=== PATIENT | male | born 1990 | race Two or more races ===

== ENCOUNTER 2017-11-17 20:36 | Emergency (ER) | payer SELFPAY ==
--- NOTE | 2017-11-17 21:33 | NUR ---
CALLED FOR TRIAGE; NO ANSWER
== END 2017-11-17 22:11 | disposition left against medical advice (07) ==
LOC: ER 20:42
DX: S89.90XA Unspecified injury of unspecified lower leg, initial encounter (principal); X58.XXXA Exposure to other specified factors, initial encounter; Y93.89 Activity, other specified; Y92.89 Other specified places as the place of occurrence of the external cause; Y99.8 Other external cause status; Z53.21 Procedure and treatment not carried out due to patient leaving prior to being seen by health care provider

== ENCOUNTER 2020-11-02 20:10 | Emergency (ER) | payer SELFPAY ==
[~2020-11-02] VITALS: Ht 162.6 cm; Wt 54.4 kg
--- NOTE | 2020-11-02 20:48 | NUR ---
PATIENT CAME TO ER BED 06 C/O GENERALIZED ABDOMINAL PAIN SINCE TODAY IN THE NOON. PATIENT STATES THAT HE HAD LAST EATEN A TORTA IN THE MORNING WITH BM WITH NO ISSUES. PATIENT THEN FELT CRAMPING SENSATION ALL OVER HIS STOMACH. PATIENT IS ALERT AND ORIENTED x4. DENIES SHORTNESS OF BREATH. CONNECTED TO THE MONITOR.
--- NOTE | 2020-11-02 20:54 | NUR ---
BLOOD SENT TO LAB
[2020-11-02] MEDS ORDERED: IV NS 0.9% 1,000 ML BAG IV ONE (21:00)
[2020-11-02] MEDS ORDERED: DICYCLOMINE HCL 10 MG CAPSULE PO ONE ×2 (21:00→21:02)
[2020-11-02] MEDS ORDERED: TRAMADOL HCL 50 MG TABLET PO ONE (21:00)
[2020-11-02] MEDS ORDERED: TRAMADOL HCL 50 MG TABLET ONE (21:02)
[2020-11-02 21:14] LABS: BASOPHILS % (AUTO) 0.4 % (0.0-2.0); EOSINOPHILS % (AUTO) 0.4 % (0.0-6.0); HEMATOCRIT 46 % (39-51); HEMOGLOBIN 15.6 g/dL (13.5-17.5); LYMPHOCYTES # (AUTO) 2.3 K/uL (0.8-4.8); LYMPHOCYTES % (AUTO) 27.3 % (20.0-44.0); MEAN CORPUSCULAR HGB CONC 34 g/dl (31.0-36.0); MEAN CORPUSCULAR VOLUME 99 fL (80-96); MONOCYTES # (AUTO) 0.5 K/uL (0.1-1.30); MONOCYTES % (AUTO) 6.5 % (2.0-12.0); NEUTROPHILS # (AUTO) 5.5 K/uL (1.8-8.9); NEUTROPHILS % (AUTO) 65.4 % (43.0-81.0); PLATELET COUNT (AUTO) 194 K/uL (150-450); RED BLOOD CELL COUNT(AUTO) 4.65 MIL/uL (4.5-6.0); WHITE BLOOD COUNT (AUTO) 8.4 K/uL (4.3-11.0)
[2020-11-02 21:20] LABS: CALCIUM, SERUM 9.2 mg/dL (8.5-10.1); CREATININE 0.8 mg/dL (0.6-1.3); POTASSIUM 3.9 mmol/L (3.5-5.1)
[2020-11-02 21:20] LABS: BILIRUBIN,URINE NEGATIVE (NEGATIVE); COLOR,URINE YELLOW (YELLOW); LEUKOCYTE ESTERASE ,URINE NEGATIVE (NEGATIVE); NITRITE, URINE NEGATIVE (NEGATIVE); PROTEIN,URINE NEGATIVE (NEGATIVE); UGLUCOSE NEGATIVE (NEGATIVE); UROBILINOGEN,URINE 0.2 EU/dL (0.2)
[2020-11-02 21:26] LABS: ALBUMIN 4.4 g/dL (3.4-5.0); BILIRUBIN,DIRECT 0.1 mg/dL (0.0-0.2); BILIRUBIN,TOTAL 0.4 mg/dL (0.2-1.0); TOTAL PROTEIN, SERUM 8.1 g/dL (6.4-8.2)
[2020-11-02 21:29] LABS: BACTERIA,URINE None seen /HPF (None Seen); MUCUS,URINE Few /LPF (None Seen); SQUAMOUS EPITHELIAL CELL,UR 0-2 /HPF (None Seen); WBC,URINE 0-2 /HPF (0-3)
[2020-11-02] MEDS ORDERED: MORPHINE SULFATE INJ 2 MG/ML DISP.SYRIN IV ONE (21:30)
[2020-11-02] MEDS ORDERED: ONDANSETRON HCL/PF 4 MG/2 ML VIAL IV ONE (21:30)
[2020-11-02] MEDS ORDERED: ONDANSETRON HCL/PF 4 MG/2 ML VIAL ONE (21:33)
[2020-11-02] MEDS ORDERED: MORPHINE SULFATE INJ 4 MG/ML DISP.SYRIN ONE (21:33)
[2020-11-02] MEDS ORDERED: ACET-2605 PO (21:41)
[2020-11-02] MEDS ORDERED: ONDA4TAB5 PO (21:41)
--- NOTE | 2020-11-02 22:23 | NUR ---
Patient discharged to home in stable condition. Written and verbal after care instructions given. Patient verbalizes understanding of instruction and RX. Pt ambulated out of ED.VSS.
[2020-11-02 22:24] VITALS: BP 126/76
== END 2020-11-02 22:24 | disposition home or self-care (01) ==
LOC: ER 20:16
DX: A08.4 Viral intestinal infection, unspecified (principal)
CPT/HCPCS: 36415; 80048; 80076; 81001; 83690; 85025; 96361; 96374; 96375; 99284; J2270; J2405; J7030